=== PATIENT | male | born 1975 | race American Indian/Alaskan Native ===

== ENCOUNTER 2018-10-08 22:00 | Emergency (ER) | payer SELFPAY ==
[2018-10-08 22:17] VITALS: BP 116/66
--- NOTE | 2018-10-08 22:19 | Event Note ---
ED Screening Note Date of service: 10/08/18 Time: 22:17 ED Screening Note: 43 y/o male come in for right foot pain after hitting his right foot on a dresser about 3pm. This initial assessment/diagnostic orders/clinical plan/treatment(s) is/are subject to change based on patients health status, clinical progression and re- assessment by fellow clinical providers in the ED. Further treatment and workup at subsequent clinical providers discretion. Patient/guardian urged not to elope from the ED as their condition may be serious if not clinically assessed and managed. Initial orders include:
[2018-10-08] MEDS ORDERED: IBUPROFEN ONE (22:22)
[2018-10-08] MEDS ORDERED: IBUPROFEN PO ONE (22:23)
--- NOTE | 2018-10-08 23:32 | XRay Report ---
RIGHT FOOT 2 VIEWS INDICATION / CLINICAL INFORMATION: Right foot injury with pain with onset today. COMPARISON: None available. FINDINGS: BONES and JOINT(S): No acute fracture or subluxation. No significant arthritis. SOFT TISSUES: No significant abnormality. ADDITIONAL FINDINGS: None. IMPRESSION: No acute findings. Signer Name: Haris Almonte MD Signed: 10/08/2018 11:28 PM Workstation Name: [email or web address]
--- NOTE | 2018-10-08 23:43 | Emergency Department Report ---
ED Lower Extremity HPI - General Chief Complaint: Extremity Injury, Lower Stated Complaint: FOOT INJURY Time Seen by Provider: 10/08/18 23:13 Source: patient Mode of arrival: Wheelchair Limitations: No Limitations - History of Present Illness Initial Comments: Patient is a 43-year-old male who presents to the emergency room with complaints of right foot pain that began at 3 PM today. Patient states he was playing in the house with his children and hit his right lateral foot against the coffee table. Patient states he was ambulatory after the incident but states now has not been ambulatory because it is painful. he denies any previous injury of the foot. - Related Data Previous Rx's Medication Instructions Recorded Last Taken Type Naproxen [Naprosyn TAB] 500 mg PO BID PRN #20 tablet 10/08/18 Unknown Rx Allergies Allergy/AdvReac Type Severity Reaction Status Date / Time No Known Allergies Allergy Verified 10/08/18 22:07 ED Review of Systems ROS: Stated complaint: FOOT INJURY Other details as noted in HPI Comment: All other systems reviewed and negative ED Past Medical Hx - Past Medical History Previous Medical History?: No - Surgical History Past Surgical History?: No - Social History Smoking Status: Current Every Day Smoker Substance Use Type: None - Medications Home Medications: Home Medications Medication Instructions Recorded Confirmed Last Taken Type Naproxen [Naprosyn TAB] 500 mg PO BID PRN #20 tablet 10/08/18 Unknown Rx ED Physical Exam - General Limitations: No Limitations General appearance: alert, in no apparent distress - Head Head exam: Present: atraumatic, normocephalic - Eye Eye exam: Present: normal appearance - ENT ENT exam: Present: mucous membranes moist - Extremities Exam Extremities exam: Present: other (TTP over the right lateral foot with overlying ecchymosis and edema, no broken skin, FROM of the right toes, foot, and ankle, no obvious deformity, 2+ distal pulses, sensation intact) - Neurological Exam Neurological exam: Present: alert, oriented X3 - Psychiatric Psychiatric exam: Present: normal affect, normal mood - Skin Skin exam: Present: warm, dry, intact ED Course Vital Signs 10/08/18 22:06 Temperature 98.3 F Pulse Rate 63 Respiratory 18 Rate Blood Pressure 116/66 O2 Sat by Pulse 100 Oximetry ED Lower Extremity MDM - Radiology Data Radiology results: report reviewed RIGHT FOOT 2 VIEWS INDICATION / CLINICAL INFORMATION: Right foot injury with pain with onset today. COMPARISON: None available. FINDINGS: BONES and JOINT(S): No acute fracture or subluxation. No significant arthritis. SOFT TISSUES: No significant abnormality. ADDITIONAL FINDINGS: None. IMPRESSION: No acute findings. Signer Name: Haris Almonte MD Signed: 10/08/2018 11:28 PM Workstation Name: [id number] Transcribed By: THOMAS Dictated By: Haris Almonte MD Electronically Authenticated By: Haris Almonte MD Signed Date/Time: 10/08/18 5228 - Medical Decision Making Patient is a 43-year-old male who presents to the emergency room with complaints of right foot pain that began at 3 PM today. Patient states he was playing in the house with his children and hit his right lateral foot against the coffee table. Patient states he was ambulatory after the incident but states now has not been ambulatory because it is painful. he denies any previous injury of the foot. on exam: TTP over the right lateral foot with overlying ecchymosis and edema, no broken skin, FROM of the right toes, foot, and ankle, no obvious deformity, 2+ distal pulses, sensation intact. XR of the right foot shows No acute findings. pt given prescription for naproxen for discomfort. advised to please take medication as prescribed as needed. may use ice, rest, elevation. only ice for 15 minutes at a time. follow up with a primary care doctor in the next 2-3 days. return to the emergency room for any new or worsening symptoms. - Differential Diagnosis strain, sprain, fx, dislocation, ligamentous/tendon injury Critical care attestation.: If time is entered above; I have spent that time in minutes in the direct care of this critically ill patient, excluding procedure time. ED Disposition Clinical Impression: Right foot pain Disposition: DC-01 TO HOME OR SELFCARE Is pt being admited?: No Does the pt Need Aspirin: No Condition: Stable Instructions: Foot Sprain (ED) Additional Instructions: please take medication as prescribed as needed. may use ice, rest, elevation. only ice for 15 minutes at a time. follow up with a primary care doctor in the next 2-3 days. return to the emergency room for any new or worsening symptoms. Prescriptions: Naproxen [Naprosyn TAB] 500 mg PO BID PRN #20 tablet PRN Reason: pain Referrals: LUIZA TOUSSAINT MD [Staff Physician] - 2-3 Days Time of Disposition: 23:56 Print Language: HONDURAN
== END 2018-10-09 00:20 | disposition home or self-care (01) ==
LOC: ED 22:00
DX: M79.671 Pain in right foot (principal); F17.200 Nicotine dependence, unspecified, uncomplicated; Z79.899 Other long term (current) drug therapy; W22.8XXA Striking against or struck by other objects, initial encounter; Y93.89 Activity, other specified; Y92.009 Unspecified place in unspecified non-institutional (private) residence as the place of occurrence of the external cause; Y99.8 Other external cause status